=== PATIENT | male | born 1955 | race Caucasian/White ===

== ENCOUNTER → 2023-06-25 08:16 | Outpatient (REF) | payer MEDICARE, SELFPAY ==
[2023-06-25 11:40] LABS: % Basophils 0.7 % (0-2); % Eosinophils 3.7 % (0-6); % Immature Granulocytes 0.2 % (0-0.5); % Lymphocytes 34.6 % (20.5-51.1); % Monocytes 12.2 % (1.7-9.3); % Neutrophils 48.6 % (42.2-75.2); Absolute Eosinophils 0.2 10^3/uL (0-0.7); Absolute Lymphocytes 1.5 10^3/uL (1.2-3.4); Absolute Monocytes 0.5 10^3/uL (0.1-0.6); Absolute Neutrophils 2.1 10^3/uL (1.4-6.5); Hematocrit 39.9 % (39.0-52.0); Mean Corp Hgb Conc. 32.6 g/dL (33.0-37.0); Mean Corpuscular Hgb 31.1 pg (27.0-31.0); Mean Corpuscular Volume 95.5 fL (80.0-94.0); Mean Platelet Volume 10.7 fL (7.4-10.4); Nucleated Red Blood Cells % 0 % (-); Platelet Count 187 10^3/uL (130-400); Red Blood Cell Count 4.18 10^6/uL (4.70-6.10); Red Cell Dist. Width 12.9 % (11.5-14.5); White Blood Cell Count 4.4 10^3/uL (4.8-10.8)
[2023-06-25 12:39] LABS: Vitamin D, 25-OH*** 48.4 ng/mL (30-80)
[2023-06-25 12:43] LABS: ALT (SGPT) 23 U/L (0-50); AST (SGOT) 27 U/L (17-59); Albumin 4.1 g/dl (3.5-5.0); Alkaline Phosphatase 75 U/L (38-126); Blood Urea Nitrogen 21 mg/dl (9-20); Carbon Dioxide 27 mmol/L (22-30); Chloride 106 mmol/L (98-107); Glucose 89 mg/dl (70-99); HDL Cholesterol 71 mg/dl; Iron 126 ug/dl (49-181); LDL Cholesterol, Calculated 151 mg/dl; Potassium 4.5 mmol/L (3.5-5.1); Sodium 136 mmol/L (135-145); Total Bilirubin 0.5 mg/dl (0.2-1.3); Total Cholesterol 249 mg/dl (50-199); Total Protein 6.8 g/dl (6.3-8.2); Triglyceride 135 mg/dl (10-149); Very Low Density Lipoprotein 27 mg/dl (0-30); eGFR > 60.00
[2023-06-25 12:52] LABS: PSA, Total - Screen 6.03 ng/ml (0.0-4.0); Percent Saturation 42 % (20-50); Total Iron Binding Capacity 297 ug/dl (261-462)
[2023-06-25 12:56] LABS: Ferritin 76.5 ng/ml (17.9-464.0)
[2023-06-25 13:28] LABS: Vitamin B12 486 pg/ml (239-931)
[2023-06-25 14:35] LABS: Glycohemoglobin (HgbA1c) 5.5 % (4.0-5.6)
[2023-06-26 23:14] LABS: Lead - Venous 4.8 ug/dL (<=4.9)
== END ==
LOC: REG 08:16
PROVIDERS: ATTENDING PHYSICIAN Nurse Practitioner Primary Care
DX: Z00.00 Encounter for general adult medical examination without abnormal findings (principal); I10 Essential (primary) hypertension; E78.2 Mixed hyperlipidemia; R93.1 Abnormal findings on diagnostic imaging of heart and coronary circulation; R73.01 Impaired fasting glucose; R78.71 Abnormal lead level in blood; D64.9 Anemia, unspecified; E53.8 Deficiency of other specified B group vitamins; E55.9 Vitamin D deficiency, unspecified; Z12.5 Encounter for screening for malignant neoplasm of prostate; N40.1 Benign prostatic hyperplasia with lower urinary tract symptoms
CPT/HCPCS: 36415; 80053; 80061; 82306; 82607; 82728; 82746; 83036; 83540; 83550; 83655; 85025; G0103

== ENCOUNTER → 2023-10-29 08:33 | Outpatient (REF) | payer MEDICARE, SELFPAY ==
[2023-10-29 09:32] LABS: % Basophils 0.8 % (0-2); % Eosinophils 3.4 % (0-6); % Immature Granulocytes 0.2 % (0-0.5); % Lymphocytes 33.7 % (20.5-51.1); % Monocytes 11.2 % (1.7-9.3); % Neutrophils 50.7 % (42.2-75.2); Absolute Eosinophils 0.2 10^3/uL (0-0.7); Absolute Lymphocytes 1.7 10^3/uL (1.2-3.4); Absolute Monocytes 0.6 10^3/uL (0.1-0.6); Absolute Neutrophils 2.5 10^3/uL (1.4-6.5); Hematocrit 39.9 % (39.0-52.0); Mean Corp Hgb Conc. 32.6 g/dL (33.0-37.0); Mean Corpuscular Volume 92.1 fL (80.0-94.0); Mean Platelet Volume 10.2 fL (7.4-10.4); Nucleated Red Blood Cells % 0 % (-); Platelet Count 215 10^3/uL (130-400); Red Blood Cell Count 4.33 10^6/uL (4.70-6.10); Red Cell Dist. Width 13.2 % (11.5-14.5)
[2023-10-29 10:05] LABS: HDL Cholesterol 78 mg/dl; LDL Cholesterol, Calculated 99 mg/dl; Total Cholesterol 191 mg/dl (50-199); Triglyceride 70 mg/dl (10-149); Very Low Density Lipoprotein 14 mg/dl (0-30)
[2023-10-29 10:35] LABS: Cortisol, Random 11.3 ug/dl; TSH Reflex To Free T4 2.08 uIU/ml (0.47-4.68)
[2023-10-30 19:02] LABS: % Free Testosterone 1.6 % (1.6-2.9); Free Testosterone 62 pg/mL (47-244); Sex Hormone Binding Globulin 44 nmol/L (19-76); Total Testosterone 397 ng/dL (300-720)
== END ==
LOC: REG 08:33
PROVIDERS: ATTENDING PHYSICIAN Nurse Practitioner Primary Care
DX: E78.2 Mixed hyperlipidemia (principal); R53.1 Weakness; D72.829 Elevated white blood cell count, unspecified
CPT/HCPCS: 36415; 80061; 82533; 84270; 84402; 84403; 84443; 85025

== ENCOUNTER → 2023-11-15 14:04 | Outpatient (REF) | payer MEDICARE, SELFPAY ==
[2023-11-15 15:17] LABS: % Basophils 0.8 % (0-2); % Eosinophils 1.4 % (0-6); % Immature Granulocytes 0.2 % (0-0.5); % Lymphocytes 27.7 % (20.5-51.1); % Monocytes 5.2 % (1.7-9.3); % Neutrophils 64.7 % (42.2-75.2); Absolute Eosinophils 0.1 10^3/uL (0-0.7); Absolute Lymphocytes 1.4 10^3/uL (1.2-3.4); Absolute Monocytes 0.3 10^3/uL (0.1-0.6); Absolute Neutrophils 3.2 10^3/uL (1.4-6.5); Hematocrit 40.1 % (39.0-52.0); Hemoglobin 13.4 g/dL (13.0-18.0); Mean Corp Hgb Conc. 33.4 g/dL (33.0-37.0); Mean Corpuscular Hgb 31.2 pg (27.0-31.0); Mean Corpuscular Volume 93.5 fL (80.0-94.0); Nucleated Red Blood Cells % 0 % (-); Platelet Count 220 10^3/uL (130-400); Red Blood Cell Count 4.29 10^6/uL (4.70-6.10); Red Cell Dist. Width 13.2 % (11.5-14.5)
[2023-11-15 15:20] LABS: Erythrocyte Sed Rate 18 mm/hour (0-20)
[2023-11-15 15:57] LABS: ALT (SGPT) 43 U/L (0-50); AST (SGOT) 39 U/L (17-59); Albumin 4.5 g/dl (3.5-5.0); Alkaline Phosphatase 68 U/L (38-126); Blood Urea Nitrogen 23 mg/dl (9-20); Calcium 9.3 mg/dl (8.4-10.2); Carbon Dioxide 26 mmol/L (22-30); Chloride 102 mmol/L (98-107); Glucose 106 mg/dl (70-99); Potassium 4.6 mmol/L (3.5-5.1); Sodium 139 mmol/L (135-145); Total Bilirubin 0.9 mg/dl (0.2-1.3); eGFR > 60.00
[2023-11-17 23:37] LABS: EBV-EA (D) Ab IgG <5.0 U/mL (0.0-10.9); EBV-VCA IgG Antibodies 31.4 U/mL (0.0-21.9); EBV-VCA IgM Antibodies <10.0 U/mL (0.0-43.9)
== END ==
LOC: REG 14:04
PROVIDERS: ATTENDING PHYSICIAN Family Medicine
DX: M54.2 Cervicalgia (principal); W57.XXXD Bitten or stung by nonvenomous insect and other nonvenomous arthropods, subsequent encounter; S10.96XD Insect bite of unspecified part of neck, subsequent encounter
CPT/HCPCS: 36415; 80053; 85025; 85652; 86618; 86663; 86664; 86665

== ENCOUNTER → 2023-12-23 12:46 | Outpatient (REF) | payer MEDICARE, SELFPAY | LOC: HWRAD 12:46 | PROVIDERS: ATTENDING PHYSICIAN Family Medicine | DX: M54.2 Cervicalgia (principal); W57.XXXD Bitten or stung by nonvenomous insect and other nonvenomous arthropods, subsequent encounter; S10.96XD Insect bite of unspecified part of neck, subsequent encounter | CPT/HCPCS: 76536 ==

== ENCOUNTER 2024-04-25 06:23 | Day surgery (SDC) | payer MEDICARE, SELFPAY | END 2024-04-25 12:04 | disposition home or self-care (01) | LOC: GI 06:23 | PROVIDERS: ATTENDING PHYSICIAN Internal Medicine | DX: Z12.11 Encounter for screening for malignant neoplasm of colon (principal); K64.8 Other hemorrhoids; K58.9 Irritable bowel syndrome, unspecified | CPT/HCPCS: G0121 ==

== ENCOUNTER 2024-05-10 15:11 | Emergency (ER) | payer MEDICARE, SELFPAY ==
[2024-05-10 15:12] VITALS: BMI 25.5
[2024-05-10 15:16] VITALS: BP 186/92
[2024-05-10 15:46] LABS: % Basophils 0.9 % (0-2); % Eosinophils 3.1 % (0-6); % Immature Granulocytes 0.4 % (0-0.5); % Monocytes 11.5 % (1.7-9.3); % Neutrophils 49.1 % (42.2-75.2); Absolute Basophils 0.1 10^3/uL (0-0.2); Absolute Eosinophils 0.2 10^3/uL (0-0.7); Absolute Lymphocytes 1.9 10^3/uL (1.2-3.4); Absolute Monocytes 0.6 10^3/uL (0.1-0.6); Absolute Neutrophils 2.7 10^3/uL (1.4-6.5); Hematocrit 39.5 % (39.0-52.0); Hemoglobin 13.4 g/dL (13.0-18.0); Mean Corp Hgb Conc. 33.9 g/dL (33.0-37.0); Mean Corpuscular Hgb 31.4 pg (27.0-31.0); Mean Corpuscular Volume 92.5 fL (80.0-94.0); Mean Platelet Volume 10.3 fL (7.4-10.4); Nucleated Red Blood Cells % 0 % (-); Platelet Count 189 10^3/uL (130-400); Red Blood Cell Count 4.27 10^6/uL (4.70-6.10); White Blood Cell Count 5.5 10^3/uL (4.8-10.8)
[2024-05-10 15:52] LABS: ALT (SGPT) 26 U/L (0-50); AST (SGOT) 27 U/L (17-59); Albumin 4.6 g/dl (3.5-5.0); Alkaline Phosphatase 69 U/L (38-126); Blood Urea Nitrogen 27 mg/dl (9-20); Calcium 9.2 mg/dl (8.4-10.2); Carbon Dioxide 26 mmol/L (22-30); Chloride 106 mmol/L (98-107); Glucose 112 mg/dl (70-99); Potassium 4.2 mmol/L (3.5-5.1); Sodium 141 mmol/L (135-145); Total Bilirubin 0.6 mg/dl (0.2-1.3); Total Protein 7.2 g/dl (6.3-8.2); eGFR > 60.00
[2024-05-10 16:04] LABS: Troponin I < 0.012 ng/ml
[2024-05-10 17:10] VITALS: BP 146/88
[2024-05-10] MEDS: ANTIVERT 25 MG PO (17:34)
[2024-05-10 18:00] VITALS: BP 131/83
--- NOTE | 2024-05-10 18:51 | ED.GENMED ---
History of Present Illness
General
Chief Complaint: Dizziness
Source: patient
Exam Limitations: none
Time Seen by Provider: 05/10/24 17:06
History of Present Illness
History of Present Illness:
68-year-old male with history of bladder cancer presents with the onset of dizziness today. Describes a spinning sensation worse with change of position. Its improved with rest and sitting still. He was nauseous associated with this without
vomiting. No chest pain or shortness of breath. No unilateral numbness or weakness or aphasia. No slurred speech. No other complaints at this time
Phy Exam
Physical Exam
Physical Exam:
General: Well-appearing male no acute respiratory distress
HEENT: Normocephalic atraumatic
Heart: Regular rate and rhythm
Lungs: Clear no wheeze
Neurologic exam: Alert and oriented x 3 finger-nose [id number] intact. Good strength to the upper and lower extremities. No drift on exam. [place]-Hallpike maneuver increases dizziness when he turns his head to the right.No aphasia or dysarthria.
Course
Orders/Labs/Results
Orders:
Orders
05/10/24 15:19
Electrocardiogram (*1) Urgent
Reason for Study: Vertigo / Dizzy
EKG- Treatment ONCE
05/10/24 15:32
Complete Blood Count/With Diff Urgent
Comprehensive Metabolic Panel Urgent
Troponin I Urgent
05/10/24 17:23
CT Head W/o Iv Contrast Urgent
Comment:
Reason For Exam: dizziness
Meclizine [Antivert] 25 mg PO NOW STA
05/10/24 17:24
Electrocardiogram (*1) Urgent
Reason for Study: Vertigo / Dizzy
EKG- Treatment ONCE
Abnormal Lab Results
05/10/24
15:32
RBC 4.27 L 10^6/uL
(4.70-6.10)
MCH 31.4 H pg
(27.0-31.0)
Monocytes % 11.5 H %
(1.7-9.3)
BUN 27 H mg/dl
(9-20)
Glucose 112 H mg/dl
(70-99)
05/10/24 15:32
05/10/24 15:32
Vital Signs
Initial and Last Documented VS:
Initial Vital Signs
Temp Pulse Resp BP Pulse Ox
98.2 F 74 16 186/92 100
05/10/24 15:16 05/10/24 15:16 05/10/24 15:16 05/10/24 15:16 05/10/24 15:16
Last Documented Vital Signs
Temp Pulse Resp BP Pulse Ox
98.2 F 64 15 131/83 98
05/10/24 17:10 05/10/24 18:15 05/10/24 18:15 05/10/24 18:00 05/10/24 18:15
MDM/Problems Addressed
Differential Diagnosis Includes:
Dizziness. Question positional vertigo versus arrhythmia versus electrolyte abnormality no signs of CVA
Labs ordered and reviewed and are negative. CT of the head was ordered meclizine given
*Critical Care Note
Total Time (30-74mins, 75-104mins- exclusive of procedures): Not Applicable
Update Note
Update Note:
Exam most consistent with positional vertigo. CT of the head negative. Initial EKG read as atrial flutter however this was likely motion artifact. On monitor and repeat EKG both showed sinus rhythm. Do not suspect arrhythmia as source of
patient's symptoms. Will treat with meclizine and advised follow-up with family doctor
ED Attending Note
-
Portions of this chart may have been created with voice recognition software.� Occasional wrong word or��sound alike� substitutions may have occurred due to the inherent limitations of voice recognition software.
Discharge Plan
Departure
Patient Disposition: Home (Routine Discharge)
Date of Disposition: 05/10/24
Time of Disposition: 18:55
Patient with high blood pressure during this ER visit?: No
Discharge Problem:
Vertigo
Instructions: Vertigo (a Type of Dizziness) (DC)
Prescriptions:
New
meclizine 25 mg tablet
25 mg PO TID PRN (Reason: dizziness) Qty: 10 0RF
Referrals:
Arabella Black CRNP [Family Provider] -
Activity Restrictions/Additional Instructions:
Use meclizine as needed for dizziness. Rest. Return if worse otherwise follow-up with your doctor
Interventions
Interventions:
*Risk Screen - Suicide Last Done: 05/10/24 15:19
*General Assessment Last Done: 05/10/24 17:11
*Neglect/Abuse Screening Last Done: 05/10/24 15:19
*ED- Fall Risk Assessment Last Done: 05/10/24 17:11
*ED COVID-19 Vaccine History Last Done: 05/10/24 19:08
*Nursing Disposition Last Done: 05/10/24 19:09
ED- Neurological Assessment Last Done: 05/10/24 17:11
ED Swallowing Screen Last Done: 05/10/24 17:11
Discharge Date and Time
Discharge Date/Time: 05/10/24 19:11
Print Language: FRISIAN
== END 2024-05-10 19:11 | disposition home or self-care (01) ==
LOC: EMR 15:11
PROVIDERS: EMERGENCY PHYSICIAN Student in an Organized Health Care Education/Training Program; FAMILY PHYSICIAN Nurse Practitioner Primary Care
DX: R42 Dizziness and giddiness (principal)
CPT/HCPCS: 99285; 70450; 80053; 84484; 85025; 93005

== ENCOUNTER → 2024-09-29 11:00 | Outpatient (REF) | payer MEDICARE, SELFPAY ==
[2024-09-29 12:48] LABS: PSA, Total - Diagnostic 3.45 ng/ml (0.0-4.0)
== END ==
LOC: REG 11:00
PROVIDERS: ATTENDING PHYSICIAN Family Medicine
DX: R97.20 Elevated prostate specific antigen [PSA] (principal)
CPT/HCPCS: 36415; 84153

== ENCOUNTER → 2024-11-15 13:46 | Outpatient (REF) | payer MEDICARE, SELFPAY ==
[2024-11-15 15:08] LABS: Hematocrit 39.5 % (39.0-52.0); Hemoglobin 13.0 g/dL (13.0-18.0); Mean Corp Hgb Conc. 32.9 g/dL (33.0-37.0); Mean Corpuscular Volume 91.6 fL (80.0-94.0); Nucleated Red Blood Cells % 0 % (-); Platelet Count 188 10^3/uL (130-400); Red Cell Dist. Width 13.1 % (11.5-14.5)
[2024-11-15 15:34] LABS: D-Dimer < 0.27 ug/mlFEU (0.00-0.50)
[2024-11-15 16:13] LABS: ALT (SGPT) 23 U/L (0-50); AST (SGOT) 26 U/L (17-59); Albumin 4.2 g/dl (3.5-5.0); Alkaline Phosphatase 66 U/L (38-126); Blood Urea Nitrogen 20 mg/dl (9-20); Calcium 9.2 mg/dl (8.4-10.2); Carbon Dioxide 27 mmol/L (22-30); Chloride 105 mmol/L (98-107); Glucose 97 mg/dl (70-99); Potassium 4.7 mmol/L (3.5-5.1); Sodium 138 mmol/L (135-145); Total Protein 6.7 g/dl (6.3-8.2); eGFR > 60.00
== END ==
LOC: REG 13:46
PROVIDERS: ATTENDING PHYSICIAN Nurse Practitioner Adult Health; FAMILY PHYSICIAN Family Medicine
DX: I26.99 Other pulmonary embolism without acute cor pulmonale (principal)
CPT/HCPCS: 36415; 80053; 85025; 85379